=== PATIENT | female | born 1960 ===

== ENCOUNTER 2019-05-02 08:20 | Outpatient (CLI) | payer BC, SELFPAY ==
--- NOTE | 2019-05-02 08:30 | US_ITS ---
WS: [id number] ULTRASOUND ABDOMEN LIMITED CLINICAL INFORMATION: RUQ PAIN COMPARISON: None. FINDINGS: Liver Size: Normal. Craniocaudal length: 21.2 cm. Echogenicity: Dense with fatty infiltration Surface nodularity: None. Mass (size and location): None. Bile ducts Intrahepatic ducts: Normal. Common bile duct diameter: 5.2 mm. Gallbladder Normal. Gallstones: None. Gallbladder sludge: None. Gallbladder wall thickening: None. Pericholecystic fluid: None. Sonographic Mays sign: Absent. Pancreas Normal as visualized. Right kidney: Normal. Hydronephrosis: None. Size: 10.5 cm x 5.7 cm x 5.2 cm. Abdominal aorta and IVC Visualized portions are normal. Ascites: None. US/US gall bladder [id number] IMPRESSION: 1. Coarse hepatic echogenicity with fatty infiltration. 2. Gallbladder is normal. 3. No hydronephrosis in right kidney. 4. Normal common bile duct.
== END 2019-05-02 08:21 | disposition home or self-care (01) ==
LOC: RAD 08:26
PROVIDERS: PCP Family Medicine; Visit Provider Family Medicine
DX: K76.0 Fatty (change of) liver, not elsewhere classified (principal); R10.11 Right upper quadrant pain
CPT/HCPCS: 76705

== ENCOUNTER 2019-05-30 06:41 | Outpatient (CLI) | payer BC, SELFPAY ==
--- NOTE | 2019-05-30 06:50 | NM_ITS ---
WS: [id number] NUCLEAR MEDICINE HIDA SCAN CLINICAL INFORMATION: RUQ PAIN TECHNIQUE: Following intravenous administration of 8.2 mCi of technetium 99m mebrofenin, images of th e abdomen were obtained over the course of 60 minutes. Next, gallbladder ejection fraction was determ ined by obtaining preprandial and one-hour postprandial images of the gallbladder following oral mishel stion of Ensure. COMPARISON: Ultrasound May 02, 2019 FINDINGS: Normal hepatic uptake at 5 minutes. Normal hepatic excretion. Normal gallbladder activity by 15 minut es. Normal common bile duct. No evidence of acute cholecystitis or choledocholithiasis. Normal small bowel activity. Gallbladder ejection fraction 78% within normal limits. No evidence of chronic cholecystitis. NM/NM hepatobiliary w phar* [id number] IMPRESSION: 1. No evidence of acute or chronic cholecystitis. 2. Gallbladder ejection fraction 78% within normal limits.
== END 2019-05-30 06:42 | disposition home or self-care (01) ==
LOC: RAD 06:46
PROVIDERS: PCP Family Medicine; Visit Provider Family Medicine
DX: R10.11 Right upper quadrant pain (principal)
CPT/HCPCS: 78227; A9537

== ENCOUNTER 2019-06-01 19:51 | Emergency (ER) | payer BC, SELFPAY ==
[2019-06-01 20:08] VITALS: BP 177/84; PULSE 64; RESP 24; TEMP 36.4; O2SAT 96; BMI 31.1
--- NOTE | 2019-06-01 20:13 | ED_ITS ---
Entered by Jennifer Samuel, acting as scribe for Clover Rowley MD Jun 01, 2019 19:51 HPI - Abdominal Pain General: Chief Complaint: Abdominal Pain Stated Complaint: abd pain Time Seen by Provider: 06/01/19 20:13 Source: patient and family Mode of arrival: ambulatory Limitations: language barrier (Son translates) History of Present Illness: HPI narrative: 58 y/o female presents to the ED with complaint of RUQ abd pain. Pt states this pain is similar to her previous gallbladder attacks. Family states she had an ultrasound on her gallbladder on Thursday, but she had not heard back about the results. MD elicited complaint: abdominal pain Location: RUQ Severity: similar to previous episodes Radiation: epigastric Exacerbating factors: movement Relieving factors: nothing Associated Symptoms: Reports nausea; Denies chills, diarrhea, dysuria and vomiting Review of Systems Const: Denies: chills, body aches or change in appetite Eyes: Denies: blurry vision or eye discomfort ENMT: Denies: throat pain or dental pain Card: Denies: chest pain Resp: Denies: shortness of breath GI: Reports: abdominal pain (RUQ) and nausea; Denies: vomiting or diarrhea : Denies: painful urination Musc: Denies: neck pain or back pain Skin/Breast: Denies: rash Neuro: Denies: headache Psych: Denies: depression Jan/Lymph: Denies: easy bruising All/Imm: Denies: hives PFSH ED PFSH: Statuses (acute, chronic, etc) shown below reflect problem list status as previously entered and may not be historically accurate Social History Smoking and tobacco status: never smoked Physical Exam Const: COMMON NORMALS: oriented x3 and healthy appearing NUTRITIONAL APPEARANCE: obese HENMT: COMMON NORMALS: normocephalic and head/scalp atraumatic HEAD & SCALP: normocephalic and atraumatic Eye: COMMON NORMALS: PERRL and EOMs intact bilaterally PUPIL: Yes PERRL Neck/C-Spine: COMMON NORMALS: full ROM and supple Chest: COMMONS NORMALS: inspection of chest normal and palpation of chest normal Resp: COMMON NORMALS: normal respiratory effort, no retractions, no use of accessory muscles and clear to auscultation bilaterally AUSCULTATION: clear to auscultation bilaterally Cardio: COMMON NORMALS: regular rate, regular rhythm and no murmurs RATE: regular rate RHYTHM: regular rhythm GI: COMMON NORMALS: soft to palpation and no masses PALPATION: Yes soft and Yes tender Details: RUQ Extremity: COMMON NORMALS: normal to inspection and full ROM Neuro: COMMON NORMALS: oriented x3, moves all extremities and no focal motor deficits Psych: COMMON NORMALS: mental status grossly normal, thought process normal and cooperative THOUGHT PROCESS: normal thought process Skin: COMMON NORMALS: no rashes or lesions noted and no wounds GENERAL SKIN EXAM: no rashes or lesions noted Course Vital Signs: Vital signs: Vital Signs Temperature 97.6 F 06/01/19 20:08 Pulse Rate 69 06/01/19 22:38 Respiratory Rate 18 06/01/19 22:49 Blood Pressure 140/86 06/01/19 22:49 Pulse Oximetry 94 06/01/19 22:49 MDM - Abdominal Pain MDM Narrative: Medical decision making narrative: Patient presents here with abdominal pain since resolved. Patient's CT scan along with lab work here is all normal. Patient had a HIDA scan on Thursday that was normal as well. Unsure what is causing her pain. EKG is normal and she has no signs of cardiac cause. Patient is stable and is to follow-up with her primary care doctor in 3 to 5 days and return if worsening. Lab Data: Labs: Lab Results 06/01/19 06/01/19 06/01/19 Range/Units 20:14 20:14 21:40 WBC 8.4 (4.0-10.0) 10^3/ uL RBC 4.65 (4.1-5.3) 10^6/u L Hgb 12.6 (11.5-15.3) g/dL Hct 39.0 (37.0-47.0) % MCV 83.9 (81-99) fL MCH 27.1 L (28.0-34.0) pg MCHC 32.3 (30.0-36.0) g/dL RDW 12.7 (12.1-15.1) % Plt Count 402 H (130-400) 10^3/c mm MPV 10.8 H (7.4-10.4) fL Neut % (Auto) 47.1 % Lymph % (Auto) 44.7 % [place] % (Auto) 6.1 % Eos % (Auto) 1.6 % Baso % (Auto) 0.4 % Neut # (Auto) 3.9 (1.8-7.7) 10^3/u L Lymph # (Auto) 3.7 (0.8-4.8) 10^3/u L [place] # (Auto) 0.5 (0.2-0.9) 10^3/u L Eos # (Auto) 0.1 (0.0-0.8) 10^3/u L Baso # (Auto) 0.0 (0.0-0.1) 10^3/u L Nucleated RBC % (a uto) 0 % Nucleated RBCs # 0.0 /100WBC Sodium 138 (136-145) mmol/L Potassium 3.5 (3.5-5.1) mmol/L Chloride 104 (98-107) mmol/L Carbon Dioxide 24 (22-29) mmol/L Anion Gap 13.5 (5-19) BUN 20 (8-23) mg/dL Creatinine 0.8 (0.5-0.9) mg/dL GFR Calculation 73.2 L (90-130) mL/min Glucose 135 H (65-115) mg/dL Calcium 9.4 (8.5-10.5) mg/dL Total Bilirubin 0.3 (0.15-1.2) mg/dL AST 35 H (0-32) U/L ALT 25 (0-33) U/L Alkaline Phosphata se 65 (35-105) IU/L Total Protein 7.2 (6.6-8.7) g/dL Albumin 4.4 (3.5-5.2) g/dL Globulin 2.8 (1.3-4.6) g/dL Lipase 60 (13-60) U/L Urine Color Straw (Yellow) Urine Appearance Clear (CLEAR) Urine pH 6.5 (5-7) Ur Specific Gravit y 1.005 (1.005-1.030) Urine Protein Neg (Negative) Urine Glucose (UA) Norm (Normal) Urine Ketones Negative (Negative) Urine Occult Blood Neg (Negative) Urine Nitrate Negative (Negative) Urine Bilirubin Neg (NEGATIVE) Urine Urobilinogen Norm (Negative) mg/dL Ur Leukocyte Nel ase Negative (Negative) Imaging Data ^: CXR: Attestation: I personally reviewed and interpreted this imaging study as follows: My impression: no acute abnormality EKG Data ^: EKG 1: EKG interpretation date: 06/01/19 EKG interpretation time: 21:11 Interpretation: nsr hr [address] or t wave abnormalities qrs 106 qtc 427 Discharge Plan Discharge Patient Disposition: Home, Self-Care Clinical Impression: Abdominal pain Qualifiers: Abdominal location: right upper quadrant Qualified Code(s): R10.11 - Right upper quadrant pain Condition: Stable Prescriptions: [place] 5-325 mg tablet 1 tab PO Q6H PRN (Reason: pain) Qty: 14 RF: 0 Zofran 4 mg tablet 4 mg PO QID PRN (Reason: nausea and vomiting) Qty: 14 RF: 0 No Action metformin 500 mg tablet 500 mg PO DAILY RF: 0 lisinopril 5 mg tablet 5 mg PO DAILY RF: 0 Discharge Orders: Discharge Order (Routine); Ordered 06/01/19 Ordered By: Clover Rowley Referrals: Ricardo Finch MD [Primary Care Provider] - 4-7 days Discharge Diet: Advance as tolerated Discharge Activity: Resume usual activity Patient Instructions: Abdominal Pain (ED) Discharge Date/Time: 06/01/19 23:32 Coding Level of Care Code ED Environmental Services Technician for Chg Fwd The documentation recorded by the Jimmie loera Ashley, accurately reflects the service I personally performed and the decisions made by Halley godinez Korby, MD Jun 01, 2019 19:51
[2019-06-01 20:21] LABS: Basophils % 0.4 %; Eosinophils # 0.1 10^3/uL (0.0-0.8); Eosinophils % 1.6 %; Hemoglobin 12.6 g/dL (11.5-15.3); Lymphocytes # 3.7 10^3/uL (0.8-4.8); Lymphocytes % 44.7 %; Mean Corpuscular HGB Conc 32.3 g/dL (30.0-36.0); Mean Corpuscular Hemoglobin 27.1 pg (28.0-34.0); Mean Corpuscular Volume 83.9 fL (81-99); Mean Platelet Volume 10.8 fL (7.4-10.4); Monocytes # 0.5 10^3/uL (0.2-0.9); Monocytes % 6.1 %; Neutrophils # 3.9 10^3/uL (1.8-7.7); Neutrophils % 47.1 %; Nucleated Red Blood Cells % 0 %; Platelet Count 402 10^3/cmm (130-400); Red Blood Count 4.65 10^6/uL (4.1-5.3); Red Cell Distribution Width 12.7 % (12.1-15.1); White Blood Count 8.4 10^3/uL (4.0-10.0)
--- NOTE | 2019-06-01 20:22 | ECG_ITS ---
Measurements Intervals [place] Rate: 67 P: 32 [place]: 193 QRS: -13 QRSD: 106 T: -9 QT: 411 QTc: 437 SINUS RHYTHM LOW QRS VOLTAGE IN PRECORDIAL LEADS [QRS DEFLECTION < 1.0 mV IN CHEST LEADS] MINIMAL VOLTAGE CRITERIA FOR LVH, CONSIDER NORMAL VARIANT [MEETS CRITERIA IN ONE OF: R(aVL), S(V1), R(V5), R(V5/V6)+S(V1)] Compared to ECG 04/18/2019 16:14:14 Low QRS voltage now present Sinus bradycardia no longer present Myocardial infarct finding no longer present Electronically Signed On 06-02-2019 16:29:22 GEOTHERMAL INSTALLER by Andrzej Daugherty M.D. [id number]
--- NOTE | 2019-06-01 20:23 | XR_ITS ---
WS: [id number] PORTABLE CHEST HISTORY: Right-sided chest pain for one day. COMPARISON: 04/18/2019 Lungs are clear and well expanded. No pleural effusion or pneumothorax. Cardiac size: Normal. Mediastinum/Aorta: Mild ectasia aorta. No osseous abnormality seen. XR/XR chest 1V portable [id number] IMPRESSION: Mildly ectatic aorta. No acute cardiopulmonary findings.
[2019-06-01] MEDS: ondansetron 2 mg/ML SDV 2 mL 4 MG IVP ×2 (20:35→22:45)
[2019-06-01] MEDS: morphine 4 mg/mL SDV 1 mL IVP (20:35)
[2019-06-01 20:37] LABS: Alanine Aminotransferase 25 U/L (0-33); Albumin Level 4.4 g/dL (3.5-5.2); Alkaline Phosphatase 65 IU/L (35-105); Anion Gap 13.5 (5-19); Aspartate Amino Transferase 35 U/L (0-32); Blood Urea Nitrogen 20 mg/dL (8-23); Calcium 9.4 mg/dL (8.5-10.5); Carbon Dioxide 24 mmol/L (22-29); Chloride 104 mmol/L (98-107); Globulin 2.8 g/dL (1.3-4.6); Glomerular Filtration Rate 73.2 mL/min (90-130); Glucose 135 mg/dL (65-115); Lipase 60 U/L (13-60); Potassium 3.5 mmol/L (3.5-5.1); Sodium 138 mmol/L (136-145); Total Bilirubin 0.3 mg/dL (0.15-1.2); Total Protein 7.2 g/dL (6.6-8.7)
[2019-06-01 20:38] VITALS: BP 155/91; PULSE 57; RESP 20; O2SAT 95
--- NOTE | 2019-06-01 20:38 | PC.NURSE ---
Introduced self to patient and initiated vital signs. Pt is A&O x 4 and agreeable. Pt states that the reason for the ER visit today is due to severe abdominal pain which presented approximately 1 hour ago. Pt states that pain is on lower right quadrant of abdomen and radiates around to back. Reassured patient of needs and will continue to monitor.
--- NOTE | 2019-06-01 21:00 | CTR_ITS ---
PROCEDURE INFORMATION: Exam: CT Abdomen And Pelvis With Contrast Exam date and time: 06/01/2019 9:40 PM Age: 58 years old Clinical indication: Abdominal pain; Acute; Prior surgery; Surgery date: 6+ months; Surgery type: Hyst; Additional info: Abd pain TECHNIQUE: Imaging protocol: Computed tomography of the abdomen and pelvis with intravenous contrast. Total DLP: 1124.82 mGy-cm Radiation optimization: All CT scans at this facility use at least one of these dose optimization techniques: automated exposure control; mA and/or kV adjustment per patient size (includes targeted exams where dose is matched to clinical indication); or iterative reconstruction. Contrast material: OMNI; Contrast volume: 95 ml; Contrast route: IV; COMPARISON: CT abdomen pelvis w con* [id number] 04/23/2017 1:32 PM FINDINGS: Liver: There is 9 mm cyst in the right lobe of the liver. There is mild hepatomegaly. Gallbladder and bile ducts: Normal. No calcified stones. No ductal dilation. Pancreas: The pancreas is normal. Spleen: The spleen is normal. Adrenals: The adrenal glands are normal. Kidneys and ureters: There is a simple 6 mm cyst in the left kidney. The this is not changed from previous. The right kidney is normal. Stomach and bowel: There is no evidence of colitis/diverticulitis. Appendix: A normal appendix is identified. Intraperitoneal space: Unremarkable. No free air. No significant fluid collection. Vasculature: Unremarkable. No abdominal aortic aneurysm. Lymph nodes: Unremarkable. No enlarged lymph nodes. Bladder: Unremarkable as visualized. Reproductive: There has been a hysterectomy. Bones/joints: Unremarkable. No acute fracture. Soft tissues: There is a tiny periumbilical hernia containing fat not significantly changed Other findings: There is no evidence of focal fluid collections to suggest abscess formation. CT/CT abdomen pelvis w con* [id number] IMPRESSION: No acute finding. COMMENT: Consistent with the [employer]'s Incidental Findings Committee white paper (J Am Preet Radiol 2018): Any incidental cystic renal lesion classified in this report as too small to characterize or simple appearing is likely a benign cyst. No follow-up imaging is recommended for these lesions per consensus recommendations based on imaging criteria. Radiation Dose CTDIVOL = (mGy): DLP = 1124.82 (mGy-cm)
[2019-06-01] MEDS: HYDROmorphone 1 mg/mL INJ 1 mL IVP (21:05)
--- NOTE | 2019-06-01 21:09 | PC.NURSE ---
EKG done at 2104 and shown to ER doctor
[2019-06-01 21:45] LABS: Add Urine Microscopic? NO
[2019-06-01 21:55] LABS: Urine Appearance Clear (CLEAR); Urine Color Straw (Yellow)
[2019-06-01 21:56] LABS: Bilirubin Urine Neg (NEGATIVE); Blood Urine Neg (Negative); Glucose Urine UA Norm (Normal); Ketones Urine Negative (Negative); Leukocyte Esterase Urine Negative (Negative); Nitrate Urine Negative (Negative); Protein Urine Neg (Negative); Specific Gravity, Urine 1.005 (1.005-1.030); Urobilinogen Urine Norm (Negative); pH Urine 6.5 (5-7)
[2019-06-01 22:08] VITALS: BP 116/71; PULSE 68; RESP 16; O2SAT 92
[2019-06-01] MEDS: iohexol 300 mg/mL 100 mL Btl 95 ML IV (22:26)
[2019-06-01 22:38] VITALS: BP 140/86; PULSE 69; RESP 16; O2SAT 95
[2019-06-01 22:49] VITALS: BP 140/86; RESP 18; O2SAT 94
== END 2019-06-01 23:32 | disposition home or self-care (01) ==
PROVIDERS: Emergency Provider Emergency Medicine; PCP Family Medicine
DX: R10.11 Right upper quadrant pain (principal); Z79.84 Long term (current) use of oral hypoglycemic drugs
CPT/HCPCS: 71045; 74177; 80053; 81003; 83690; 85025; 93005; 96374; 96375; 96376; 99283; J1170; J2270; J2405; Q9967

== ENCOUNTER 2019-07-07 07:15 | Day surgery (SDC) | payer BC, SELFPAY ==
[2019-07-06 17:40] VITALS: BMI 29.2
[2019-07-07] VITALS (11 sets, daily range): BP systolic 144–195; BP diastolic 74–97; PULSE 46–77; RESP 15–23; TEMP 36.2–37.2; O2SAT 90–98
--- NOTE | 2019-07-07 07:54 | W.PM.OPSUD ---
Surgery/Procedure H&P Update DATE OF PROCEDURE: July 07, 2019 DATE H&P PERFORMED: 06/28/19 H&P UPDATE INFORMATION: I have reviewed H&P completed within last 30 days and No changes to prior documentation PLANNED PROCEDURE: Operation Date: 07/07/19 08:45 Proposed Procedures p Lap poss open Cholecystectomy(Not Applicable) - Raúl Eli MD
--- NOTE | 2019-07-07 07:58 | ANES.PREANE2 ---
Pre-Anesthetic Assessment Pre-Anesthetic Assessment: Height/Weight: Height 1.57 m Weight 72.575 kg Temp Pulse Resp BP Pulse Ox 98.9 F 77 18 178/85 98 07/07/19 07:41 07/07/19 07:41 07/07/19 07:41 07/07/19 07:41 07/07/19 07:41 Proposed Procedure: Operation Date: 07/07/19 08:45 Proposed Procedures p Lap poss open Cholecystectomy(Not Applicable) - Raúl Eli MD Was Beta Skylar taken within 24 hours: N/A Last intake: Intake Last Liquid Date 07/06/19 Last Liquid Time 17:00 Last Solid Date 07/06/19 Last Solid Time 17:00 Social: Social History: No alcohol and No tobacco Exam: Pre-Anes Outpt Exam: alert, oriented x 3, clear to auscultation bilaterally and regular rate & rhythm Airway: Submandibular: WNL Cervical ROM: WNL MP: 2 Additional comments: upper denture Pulmonary: Pulmonary: None reported CV/HEM: CV/HEM: None reported : : None reported Hepatic: Hepatic: None reported GI: GI: GERD Comments: acute luana Metabolic: Metabolic: DM Musc/skel: Musc/skel: None reported Neuropsych: Neuropsych: None reported Anesthetic Plan: ASA status: 2 Anesthesia: General Risk of > 500 ml blood loss (7ml/kg in children): No PFSH Anesthesia PFSH: Social History Smoking and tobacco status: never smoked Data Anesthesia Cardiac Studies: No Data to Display
[2019-07-07 07:59] LABS: Glucose Point of Care 104 mg/dL (70-110)
[2019-07-07] MEDS: sodium chloride 0.9% 1,000 ML 30 ML IV (07:59)
--- NOTE | 2019-07-07 08:00 | ANES.PAUD2 ---
Pre-Anesthetic Update Pre-Anesthetic Assessment: Date of Surgery/Procedure: 07/07/19 Proposed Procedure: Operation Date: 07/07/19 08:45 Proposed Procedures p Lap poss open Cholecystectomy(Not Applicable) - Raúl Eli MD Any changes to Pre-Anesthetic Assessment?: No Last Intake: Intake Last Liquid Date 07/06/19 Last Liquid Time 17:00 Last Solid Date 07/06/19 Last Solid Time 17:00 Labs Last 48hrs: Laboratory Results - last 48 hr 07/07/19 07:56 POC Glucose 104 Vitals: Temperature 98.9 F 07/07/19 07:41 Temperature Source Temporal Artery S can 07/07/19 07:41 Pulse Rate 77 07/07/19 07:41 Pulse Rhythm 07/07/19 07:42 Pulse Strength 3+ Normal 07/07/19 07:42 Respiratory Rate 18 07/07/19 07:41 Blood Pressure 178/85 07/07/19 07:41 Blood Pressure Danielle n 116 07/07/19 07:41 Pulse Oximetry 98 07/07/19 07:41 Oxygen Delivery Me thod 07/07/19 07:42 Exam: Pre-Anes Outpt Exam: alert, oriented x 3, clear to auscultation bilaterally and regular rate & rhythm Cardiac Studies: No Data to Display
[2019-07-07 08:36] LABS: Alanine Aminotransferase 23 U/L (0-33); Albumin Level 4.2 g/dL (3.5-5.2); Alkaline Phosphatase 70 IU/L (35-105); Aspartate Amino Transferase 16 U/L (0-32); Globulin 3.7 g/dL (1.3-4.6); Total Bilirubin 0.8 mg/dL (0.15-1.2); Total Protein 7.9 g/dL (6.6-8.7)
--- NOTE | 2019-07-07 09:15 | P.OP_ITS ---
Operative Report Date of procedure: July 07, 2019 Pre-op Diagnosis: Chronic cholecystitis. Post-op Diagnosis: Same with cholelithiasis (did not show up on preoperative imaging). Procedure Done: Laparoscopic cholecystectomy. Specimens removed/disposition: Gallbladder. Surgeon: Raúl Eli Anesthesia: General Estimated blood loss (mL): 5 Condition: stable Disposition: PACU Procedure: The patient was brought to the Operating Room and was placed in a supine position on the Operating Room table. General endotracheal anesthesia was induced. The abdomen was prepped and draped in a sterile fashion. A small vertical incision was carried out in the inferior aspect of the umbilicus. Blunt dissection was carried out down to the fascia where a small hernia defect was found. The fat coming through the hernia was partially excised, revealing the defect at the fascial level. The hernia defect was simply elongated inferiorly and then a stay suture of 0 Vicryl was placed on either side of the midline. The Vivienne port was placed directly into the peritoneal cavity through the enlarged hernia defect and was held in place with the inflatable balloon. The peritoneal cavity was insufflated with carbon dioxide. The laparoscope was used to inspect the abdominal cavity. The patient had some fatty adhesions to the umbilicus from the presence of the hernia which were eventually taken down. No other gross abnormalities were noted. A 5 millimeter port was placed in the epigastrium under direct vision. Two 5-millimeter ports were placed on the right side of the abdomen under direct vision. The ga llbladder was grasped and was elevated. Blunt dissection and hydrodissection were carried out in the infundibular region of the gallbladder and the cystic duct and cystic artery were identified. The gallbladder was partially removed from the liver bed using cautery and the spatula to confirm the anatomy before the structures were clipped and divided. The gallbladder was then removed from the liver bed using cautery and the spatula. Some small holes were inadvertently made in the gallbladder during the dissection, and a small but obvious mulberry shaped stone fell from the gallbladder and was retrieved with suction. After the gallbladder had been removed from the liver bed, the laparoscope was moved to the epigastric port and the gallbladder was removed from the peritoneal cavity through the umbilical port site after being placed in a laparoscopic bag. The stay sutures of Vicryl were tied to each other at the umbilicus, closing the defect so that it was airtight. The perihepatic spaces were irrigated with saline and the liver bed was reinspected. No ongoing problems were seen. The remaining ports were removed from the abdominal wall and the pneumoperitoneum was evacuated. All skin incisions were closed using inverted interrupted sutures of 4-0 Vicryl. Benzoin and Steri-Strips were placed over the incisions and Band-Aids followed. The patient was taken to the Recovery Area in stable condition postoperatively.
--- NOTE | 2019-07-07 09:28 | SUR.PHASEI ---
0979 PATIENT TO PACU AT THIS TIME. RR EVEN AND UNLABORED. ORAL AIRWAY IN PLACE. 4 INCISIONS TO ABDOMEN, CDI.
--- NOTE | 2019-07-07 09:53 | SUR.PHASEI ---
0935 ORAL AIRWAY REMOVED AT THIS TIME. SPO2 98% ON SIMPLE MASK AT 10L.
--- NOTE | 2019-07-07 10:04 | SUR.PHASEI ---
1003 PATIENT TO OPS AT THIS TIME. PAIN 5/10. RR EVEN AND UNLABORED, DROWSY. INCISIONS, REMY TO ABDOMEN.
[2019-07-07] MEDS: HYDROcodone-acetaminophen 5-325 mg Tablet 1 TAB PO (10:26)
== END 2019-07-07 10:59 | disposition home or self-care (01) ==
PROVIDERS: PCP Family Medicine; Visit Provider Surgery
PROC: 0FT44ZZ Resection of Gallbladder, Percutaneous Endoscopic Approach (ICD-10-PCS; CPT 47562; principal; 2019-07-07 08:45)
DX: K80.10 Calculus of gallbladder with chronic cholecystitis without obstruction (principal); E11.9 Type 2 diabetes mellitus without complications; I10 Essential (primary) hypertension; Z79.84 Long term (current) use of oral hypoglycemic drugs
CPT/HCPCS: 47562; 12345; 36416; 80076; 82962; 88304; J0690; J1200; J2001; J2704; J2710; J3010; J3490; J7030

== ENCOUNTER → 2020-12-07 08:42 | Outpatient (BNVA) | payer SELFPAY | PROVIDERS: PCP Family Medicine Adult Medicine; Visit Provider Family Medicine Adult Medicine | DX: Z00.00 Encounter for general adult medical examination without abnormal findings (principal); E11.22 Type 2 diabetes mellitus with diabetic chronic kidney disease; E78.5 Hyperlipidemia, unspecified; E66.9 Obesity, unspecified; I12.9 Hypertensive chronic kidney disease with stage 1 through stage 4 chronic kidney disease, or unspecified chronic kidney disease; I20.8 Other forms of angina pectoris; Z87.19 Personal history of other diseases of the digestive system | CPT/HCPCS: 80053; 80061; 83036; 84443; 85025 ==

== ENCOUNTER 2021-01-19 09:31 | Outpatient (CLI) | payer OTHER, SELFPAY ==
--- NOTE | 2021-01-19 09:40 | XRR_ITS ---
PROCEDURE INFORMATION: Exam: XR Lumbosacral Spine Exam date and time: 01/19/2021 9:40 AM Age: 60 years old Clinical indication: Low back pain; Additional info: [place] TECHNIQUE: Imaging protocol: XR of the lumbosacral spine. Views: 2 or 3 views. COMPARISON: CT abdomen pelvis w con* [id number] 06/01/2019 10:35 PM FINDINGS: Bones/joints: No fracture or other acute bone or joint abnormalities are seen in the lumbar spine. There is mild degenerative sclerosis of the lower lumbar facet joints. The disc spaces are not significantly narrowed. No destructive or erosive processes are seen. Soft tissues: Unremarkable. XR/XR lumbar spine 2-3V* [id number] IMPRESSION: Mild degenerative disease in the lower lumbar facet joints. No acute abnormality.
== END 2021-01-19 09:32 | disposition home or self-care (01) ==
PROVIDERS: PCP Family Medicine Adult Medicine; Visit Provider Dermatology
DX: Z02.71 Encounter for disability determination (principal); M54.5 Low back pain; M51.36 Other intervertebral disc degeneration, lumbar region
CPT/HCPCS: 72100

== ENCOUNTER → 2021-06-05 09:20 | Outpatient (BNVA) | payer MEDICAID, SELFPAY | PROVIDERS: PCP Family Medicine Adult Medicine; Visit Provider Family Medicine Adult Medicine | DX: E11.22 Type 2 diabetes mellitus with diabetic chronic kidney disease (principal); E78.5 Hyperlipidemia, unspecified; I12.9 Hypertensive chronic kidney disease with stage 1 through stage 4 chronic kidney disease, or unspecified chronic kidney disease; M25.552 Pain in left hip; G89.29 Other chronic pain; E11.59 Type 2 diabetes mellitus with other circulatory complications; Z68.33 Body mass index [BMI] 33.0-33.9, adult | CPT/HCPCS: 80053; 80061; 83036 ==

== ENCOUNTER → 2021-12-04 08:29 | Outpatient (BNVA) | payer MEDICAID, SELFPAY | PROVIDERS: PCP Family Medicine Adult Medicine; Visit Provider Family Medicine Adult Medicine | DX: E78.5 Hyperlipidemia, unspecified; E11.22 Type 2 diabetes mellitus with diabetic chronic kidney disease; M25.552 Pain in left hip; G89.29 Other chronic pain; E11.59 Type 2 diabetes mellitus with other circulatory complications; I15.2 Hypertension secondary to endocrine disorders; E66.9 Obesity, unspecified; Z00.00 Encounter for general adult medical examination without abnormal findings | CPT/HCPCS: 80053; 80061; 83036; 84443; 85025 ==

== ENCOUNTER 2022-03-30 03:42 | Emergency (ER) | payer BC, MEDICAID, SELFPAY ==
--- NOTE | 2022-03-30 03:46 | ECG_ITS ---
[facility] Test Date: 2022-03-30 Pat Name: Mejia Adame Department: Room: Gender: Female Explosive Operator Supervisor: : [id number] Requested By: Chucho Rosas Order Number: [id number] [place] MD: Baljit Yip M.D. Measurements Intervals [place] Rate: 77 P: 30 [place]: 189 QRS: -20 QRSD: 93 T: 9 QT: 382 QTc: 434 Interpretive Statements SINUS RHYTHM LOW QRS VOLTAGE IN PRECORDIAL LEADS [QRS DEFLECTION < 1.0 mV IN CHEST LEADS] MINIMAL VOLTAGE CRITERIA FOR LVH, CONSIDER NORMAL VARIANT [MEETS CRITERIA IN ONE OF: R(aVL), S(V1), R(V5), R(V5/V6)+S(V1)] Compared to ECG 06/01/2019 21:11:07 No significant changes Electronically Signed On 03-30-2022 19:45:14 ASSEMBLER DC FIELD YOKE by Baljit Yip M.D. [id number]
[2022-03-30 03:47] VITALS: BP 142/81; PULSE 73; RESP 20; TEMP 36.6; O2SAT 96; BMI 32.1
--- NOTE | 2022-03-30 03:59 | XRR_ITS ---
PROCEDURE INFORMATION: Exam: XR Chest Exam date and time: 03/30/2022 4:25 AM Age: 61 years old Clinical indication: Chest wall pain; Additional info: Cp TECHNIQUE: Imaging protocol: Radiologic exam of the chest. Views: 1 view. COMPARISON: CR XR chest 1V portable [id number] 06/01/2019 8:27 PM FINDINGS: Lungs: No focal airspace disease. Pleural spaces: Unremarkable. No pleural effusion. No pneumothorax. Heart/Mediastinum: Cardiomediastinal silhouette is within normal limits. Bones/joints: Unremarkable. XR/XR chest 1V portable [id number] IMPRESSION: No acute cardiopulmonary abnormality.
--- NOTE | 2022-03-30 03:59 | CTR_ITS ---
PROCEDURE INFORMATION: Exam: CT Head Without Contrast Exam date and time: 03/30/2022 4:12 AM Age: 61 years old Clinical indication: Dizziness and malaise or fatigue TECHNIQUE: Imaging protocol: Computed tomography of the head without contrast. Radiation optimization: All CT scans at this facility use at least one of these dose optimization techniques: automated exposure control; mA and/or kV adjustment per patient size (includes targeted exams where dose is matched to clinical indication); or iterative reconstruction. COMPARISON: No relevant prior studies available. RADIATION DOSE METRICS: Total DLP (mGy-cm): 1040.38 FINDINGS: Brain: Normal. No hemorrhage. Unremarkable white matter. No mass effect. Cerebral ventricles: No ventriculomegaly. Paranasal sinuses: Visualized sinuses are unremarkable. No fluid levels. Mastoid air cells: Visualized mastoid air cells are well aerated. Bones/joints: Unremarkable. No acute fracture. Soft tissues: Unremarkable. CT/CT head wo con* [id number] IMPRESSION: No acute intracranial abnormality.
[2022-03-30 04:13] LABS: Basophils # 0.1 10^3/uL (0.0-0.1); Basophils % 0.4 %; Eosinophils # 0.1 10^3/uL (0.0-0.8); Eosinophils % 1.1 %; Hematocrit 45.7 % (37.0-47.0); Lymphocytes # 4.1 10^3/uL (0.8-4.8); Lymphocytes % 35.1 %; Mean Corpuscular HGB Conc 32.8 g/dL (30.0-36.0); Mean Corpuscular Hemoglobin 28.3 pg (28.0-34.0); Mean Corpuscular Volume 86.2 fl (81-99); Mean Platelet Volume 10.7 fL (7.4-10.4); Monocytes # 0.7 10^3/uL (0.2-0.9); Monocytes % 5.7 %; Neutrophils # 6.69 10^3/uL (1.8-7.7); Neutrophils % 56.9 %; Nucleated Red Blood Cells % 0 %; Platelet Count 467 10^3/cmm (130-400); Red Cell Distribution Width 12.5 % (12.1-15.1); White Blood Count 11.8 10^3/uL (4.0-10.0)
[2022-03-30] MEDS: sodium chloride 0.9% 1,000 ML 999 ML IV (04:25)
[2022-03-30] MEDS: midazolam 1 mg/mL INJ 2 mL 2 MG IVP (04:25)
[2022-03-30 04:26] LABS: Troponin(5th) Baseline 7 ng/L (0-10)
[2022-03-30 04:28] LABS: Alanine Aminotransferase 27 U/L (0-33); Albumin Level 4.4 g/dL (3.5-5.2); Alkaline Phosphatase 83 U/L (35-105); Anion Gap 16.1 (5-19); Aspartate Amino Transferase 22 U/L (0-32); Blood Urea Nitrogen 23 mg/dL (8-23); Calcium 10.1 mg/dL (8.5-10.5); Carbon Dioxide 24 mmol/L (22-29); Chloride 97 mmol/L (98-107); Globulin 3.3 g/dL (1.3-4.6); Glucose 140 mg/dL (65-115); Osmolality Calculated 282 mOsm/kg (285-295); Potassium 4.1 mmol/L (3.5-5.1); Sodium 133 mmol/L (136-145); Total Bilirubin 0.3 mg/dL (0.15-1.2); Total Protein 7.7 g/dL (6.6-8.7)
--- NOTE | 2022-03-30 05:02 | W.ED.DIZZY ---
HPI - Dizziness General: Chief Complaint: Dizziness Stated Complaint: CHEST PAIN Time Seen by Provider: 03/30/22 03:48 Source: patient and family History of Present Illness: HPI Narrative: 61-year-old female with no known prior history of coronary disease. She does not speak good Portuguese. She presents after waking up around 1:30 in the morning with significant dizziness. She also had some chest discomfort that is now resolved no shortness of breath. The dizziness seems to be room spinning vertigo type dizziness that is now improved, but certainly not resolved. She has a history of diabetes and hypertension. MD elicited complaint: dizziness, lightheadedness and near syncope Pertinent past history: other Onset (ago): hour(s) Timing: sudden onset Severity: moderate Description: sense of movement Context: change in body position Exacerbating factors: movement/ambulation Relieving factors: remaining still Associated symptoms: Reports chest pain, fevers/chills, malaise, nasal congestion, palpitations and short of breath; Denies chills, cough, headache(s) or nausea Associated neuro symptoms: Deny confusion, difficulty speaking, dysphagia, diplopia, extremity weakness, facial numbness, facial weakness or visual changes Review of Systems Const: Reports: fever(s) and malaise; Denies: chills Eyes: Reports: decreased night vision; Denies: change in vision ENMT: Reports: nasal congestion; Denies: throat pain Card: Reports: chest pain and palpitations Resp: Reports: dyspnea and productive cough; Denies: non-productive cough GI: Denies: abdominal pain, nausea or dysphagia : Reports: flank pain (Now resolved) Neuro: Denies: headache(s) or confusion PFS ED PFSH: Medical History Angina at rest Chronic left hip pain Diabetes mellitus Dyslipidemia History of gallbladder disease Hypertension associated with diabetes Obesity (BMI 30.0-34.9) Well adult health check Social History Smoking and tobacco status: never smoked Alcohol intake: never Household members: spouse Physical Exam Const: COMMON NORMALS: no acute distress GENERAL APPEARANCE: cooperative, anxious, ill appearing (Mildly) and frail appearing (Mildly) HENMT: COMMON NORMALS: normocephalic, atraumatic and Normal external nose present HEAD & SCALP: normocephalic and atraumatic FACE & SINUS: normal facial exam and face symmetric NOSE: Normal external nose present Eye: COMMON NORMALS: Equal, round and reactive pupils present and EOMs intact bilaterally PUPIL: Yes Equal, round and reactive pupils present Neck/C-Spine: GENERAL: Yes trachea midline Chest: CHEST: Yes Symmetrical chest wall rise Resp: COMMON NORMALS: normal respiratory effort, No retractions, No use of accessory muscles and clear to auscultation bilaterally AUSCULTATION: clear to auscultation bilaterally Cardio: COMMON NORMALS: regular rate and regular rhythm RATE: regular rate RHYTHM: regular rhythm GI: COMMON NORMALS: Normal to inspection, nondistended, normoactive bowel sounds present Extremity: COMMON NORMALS: no pedal edema Neuro: MAGUE COMA SCALE: document GCS findings [place] coma scale eye opening: Spontaneous [place] coma scale verbal response: Orientated [place] coma scale motor response: Obey commands [place] coma scale total score: 15 SENSORY EXAM: Yes extremities (intact) Psych: COMMON NORMALS: speech normal SPEECH: Yes normal speech Skin: COMMON NORMALS: no rashes or lesions noted GENERAL SKIN EXAM: no rashes or lesions noted Course Vital Signs: Vital signs: Vital Signs Temperature 97.9 F 03/30/22 03:47 Pulse Rate 75 03/30/22 07:07 Respiratory Rate 18 03/30/22 07:07 Blood Pressure 130/76 03/30/22 07:07 Pulse Oximetry 96 03/30/22 07:07 Oxygen Delivery Me thod 03/30/22 03:47 MDM - Dizziness Medical Decision Making 61-year-old female with chest pain and dizziness. Dizziness is improved significantly. Chest pain is resolved. Her EKG shows a sinus rhythm with normal axis and intervals. No ST changes. Rate is 75. Her first troponin is 7. Chest x-ray is normal. Head CT is normal. The patient has been up and walk to the bathroom. She has a contaminated urine without significant evidence of infection. No history of cough. She will be discharged pending a normal second troponin. Lab Data 03/30/22 03:49 03/30/22 03:49 Radiology Impressions Chest X-Ray 03/30/22 03:59 IMPRESSION: No acute cardiopulmonary abnormality. Head CT 03/30/22 03:59 IMPRESSION: No acute intracranial abnormality. Laboratory Results WBC 11.8 10^3/uL (4.0-10.0) H 03/30/22 03:49 RBC 5.30 10^6/uL (4.1-5.3) 03/30/22 03:49 Hgb 15.0 g/dL (11.5-15.3) 03/30/22 03:49 Hct 45.7 % (37.0-47.0) 03/30/22 03:49 MCV 86.2 fl (81-99) 03/30/22 03:49 MCH 28.3 pg (28.0-34.0) 03/30/22 03:49 MCHC 32.8 g/dL (30.0-36.0) 03/30/22 03:49 RDW 12.5 % (12.1-15.1) 03/30/22 03:49 Plt Count 467 10^3/cmm (130-400) H 03/30/22 03:49 MPV 10.7 fL (7.4-10.4) H 03/30/22 03:49 Neut % (Auto) 56.9 % 03/30/22 03:49 Lymph % (Auto) 35.1 % 03/30/22 03:49 [place] % (Auto) 5.7 % 03/30/22 03:49 Eos % (Auto) 1.1 % 03/30/22 03:49 Baso % (Auto) 0.4 % 03/30/22 03:49 Neut # (Auto) 6.69 10^3/uL (1.8-7.7) 03/30/22 03:49 Lymph # (Auto) 4.1 10^3/uL (0.8-4.8) 03/30/22 03:49 [place] # (Auto) 0.7 10^3/uL (0.2-0.9) 03/30/22 03:49 Eos # (Auto) 0.1 10^3/uL (0.0-0.8) 03/30/22 03:49 Baso # (Auto) 0.1 10^3/uL (0.0-0.1) 03/30/22 03:49 Nucleated RBC % (auto) 0 % 03/30/22 03:49 Nucleated RBCs # 0.0 /100WBC 03/30/22 03:49 Sodium 133 mmol/L (136-145) L 03/30/22 03:49 Potassium 4.1 mmol/L (3.5-5.1) 03/30/22 03:49 Chloride 97 mmol/L (98-107) L 03/30/22 03:49 Carbon Dioxide 24 mmol/L (22-29) 03/30/22 03:49 Anion Gap 16.1 (5-19) 03/30/22 03:49 BUN 23 mg/dL (8-23) 03/30/22 03:49 Creatinine 0.6 mg/dL (0.5-0.9) 03/30/22 03:49 GFR Calculation 101.0 mL/min (90-130) 03/30/22 03:49 Glucose 140 mg/dL (65-115) H 03/30/22 03:49 Calculated Osmolality 282 mOsm/kg (285-295) L 03/30/22 03:49 Calcium 10.1 mg/dL (8.5-10.5) 03/30/22 03:49 Magnesium 2.0 mg/dL (1.7-2.3) 03/30/22 03:49 Total Bilirubin 0.3 mg/dL (0.15-1.2) 03/30/22 03:49 AST 22 U/L (0-32) 03/30/22 03:49 ALT 27 U/L (0-33) 03/30/22 03:49 Alkaline Phosphatase 83 U/L (35-105) 03/30/22 03:49 Troponin T Baseline 7 ng/L (0-10) 03/30/22 03:49 Troponin T 120 Minute 6.25 ng/L (0-10) 03/30/22 06:20 Delta Troponin T -0.75 ABS# (0-10) L 03/30/22 06:20 Total Protein 7.7 g/dL (6.6-8.7) 03/30/22 03:49 Albumin 4.4 g/dL (3.5-5.2) 03/30/22 03:49 Globulin 3.3 g/dL (1.3-4.6) 03/30/22 03:49 Urine Color Yellow (Yellow) 03/30/22 04:45 Urine Appearance Hazy (CLEAR) A 03/30/22 04:45 Urine pH 5 (5-7) 03/30/22 04:45 Ur Specific [place] 1.025 (1.005-1.030) 03/30/22 04:45 Urine Protein Trace (Negative) 03/30/22 04:45 Urine Glucose (UA) Norm (Normal) 03/30/22 04:45 Urine Ketones 1+ (Negative) H 03/30/22 04:45 Urine Blood 2+ (Negative) H 03/30/22 04:45 Urine Nitrate Negative (Negative) 03/30/22 04:45 Urine Bilirubin Neg (Negative) 03/30/22 04:45 Urine Urobilinogen Neg mg/dL (Negative) 03/30/22 04:45 Ur Leukocyte Esterase Trace (Negative) H 03/30/22 04:45 Urine RBC 5-10 /hpf (0-2) H 03/30/22 04:45 Urine WBC 5-10 /hpf (0-5) H 03/30/22 04:45 Ur Squamous Epith Cells 5-10 /hpf (0-5) H 03/30/22 04:45 Amorphous Sediment Not Reportable 03/30/22 04:45 Urine Bacteria None /hpf (NONE) 03/30/22 04:45 Urine Mucus 3+ /hpf 03/30/22 04:45 Discharge Plan Discharge Patient Disposition: Home Clinical Impression: Hypertension associated with diabetes, Vertigo Condition: Stable Prescriptions: New meclizine 25 mg tablet 25 mg PO TID PRN (Reason: dizziness) Qty: 30 0RF No Action celecoxib 200 mg capsule 200 mg PO BID PRN (Reason: left hip & leg pain) Qty: 180 1RF amlodipine 2.5 mg tablet 2.5 mg PO DAILY Qty: 30 5RF glyburide 5 mg tablet 5 mg PO DAILY Qty: 30 5RF metformin 1,000 mg tablet 1,000 mg PO BID Qty: 60 5RF atorvastatin 40 mg tablet 40 mg PO DAILY Qty: 90 1RF lisinopril 20 mg tablet 20 mg PO DAILY Qty: 90 3RF Discharge Orders: Discharge ED (Routine); Ordered 03/30/22 Ordered By: Chucho Yun Referrals: Fredi Cardenas MD [Primary Care Provider] - Patient Instructions: Chest Pain (ED), Vertigo (ED) Activity Restrictions/Additional Instructions: Medication as directed. Return for return of chest pain, worsening dizziness despite treatment, any other concerning symptoms. Follow-up with your doctor this week. Further outpatient testing may be needed. Coding Level of Care Code ED It Programmer for Ramana Fwd Exam Comprehensive
[2022-03-30 05:05] LABS: Bilirubin Urine Neg (Negative); Blood Urine 2+ (Negative); Glucose Urine UA Norm (Normal); Ketones Urine 1+ (Negative); Leukocyte Esterase Urine Trace (Negative); Nitrate Urine Negative (Negative); Protein Urine Trace (Negative); Specific Gravity, Urine 1.025 (1.005-1.030); Urine Appearance Hazy (CLEAR); Urine Color Yellow (Yellow); Urobilinogen Urine Neg (Negative); pH Urine 5 (5-7)
[2022-03-30 05:06] LABS: Add Urine Microscopic? YES
[2022-03-30 05:08] LABS: Add Urine Culture? No; Mucus Urine 3+ /hpf
--- NOTE | 2022-03-30 05:57 | PC.NURSE ---
Pt states less dizzy than before. Walked to bathroom without assistance. No complaints. MD notified
--- NOTE | 2022-03-30 06:01 | ECG_ITS ---
[facility] Test Date: 2022-03-30 Pat Name: Mejia Adame Department: Room: Gender: Female Braille Typist: : 1960 Requested By: Chucho Rosas Order Number: [id number] [place] MD: Baljit Yip M.D. Measurements Intervals [place] Rate: 77 P: 28 OK: 200 QRS: -19 QRSD: 93 T: 9 QT: 392 QTc: 444 Interpretive Statements SINUS RHYTHM LOW QRS VOLTAGE IN PRECORDIAL LEADS [QRS DEFLECTION < 1.0 mV IN CHEST LEADS] Compared to ECG 06/01/2019 21:11:07 No significant changes Electronically Signed On 03-30-2022 19:57:13 QUICKBOOKS BOOKKEEPER by Baljit Yip M.D. [id number]
[2022-03-30 06:47] LABS: Troponin 5 2HR 6.25 ng/L (0-10)
[2022-03-30 07:07] VITALS: BP 130/76; PULSE 75; RESP 18; O2SAT 96
[2022-03-30 07:12] LABS: Troponin 5 2HR Delta -0.75 ABS# (0-10)
== END 2022-03-30 07:08 | disposition home or self-care (01) ==
PROVIDERS: Emergency Provider Emergency Medicine; PCP Family Medicine Adult Medicine
DX: E11.9 Type 2 diabetes mellitus without complications (principal); I10 Essential (primary) hypertension; R42 Dizziness and giddiness
CPT/HCPCS: 70450; 71045; 80053; 81001; 83735; 84484; 85025; 93005; 96361; 96374; 99285; J2250; J7030

== ENCOUNTER → 2022-07-31 11:49 | Outpatient (BNVA) | payer BC, MEDICAID, SELFPAY | PROVIDERS: PCP Family Medicine Adult Medicine; Visit Provider Family Medicine Adult Medicine | DX: E11.59 Type 2 diabetes mellitus with other circulatory complications (principal); E78.5 Hyperlipidemia, unspecified; I15.2 Hypertension secondary to endocrine disorders | CPT/HCPCS: 80053; 83036; 84443; 85025 ==

== ENCOUNTER → 2023-04-29 09:30 | Outpatient (BNVA) | payer MEDICARE, SELFPAY | PROVIDERS: PCP Family Medicine Adult Medicine; Visit Provider Family Medicine Adult Medicine | DX: E66.9 Obesity, unspecified; E11.59 Type 2 diabetes mellitus with other circulatory complications; I15.2 Hypertension secondary to endocrine disorders; E78.5 Hyperlipidemia, unspecified; K42.9 Umbilical hernia without obstruction or gangrene; M25.552 Pain in left hip; G89.29 Other chronic pain; J30.9 Allergic rhinitis, unspecified; E11.22 Type 2 diabetes mellitus with diabetic chronic kidney disease; I12.9 Hypertensive chronic kidney disease with stage 1 through stage 4 chronic kidney disease, or unspecified chronic kidney disease; Z87.19 Personal history of other diseases of the digestive system; R42 Dizziness and giddiness; E11.43 Type 2 diabetes mellitus with diabetic autonomic (poly)neuropathy; K31.84 Gastroparesis; K21.9 Gastro-esophageal reflux disease without esophagitis; K42.0 Umbilical hernia with obstruction, without gangrene; Z98.890 Other specified postprocedural states; Z90.49 Acquired absence of other specified parts of digestive tract; K21.00 Gastro-esophageal reflux disease with esophagitis, without bleeding; Z90.710 Acquired absence of both cervix and uterus; Z90.721 Acquired absence of ovaries, unilateral; E11.638 Type 2 diabetes mellitus with other oral complications | CPT/HCPCS: 80048; 80061; 83036 ==

== ENCOUNTER → 2023-09-16 10:20 | Outpatient (BNVA) | payer MEDICARE, SELFPAY | PROVIDERS: PCP Family Medicine Adult Medicine; Visit Provider Nurse Practitioner Family | DX: R06.02 Shortness of breath (principal) | CPT/HCPCS: 71046; 93005 ==

== ENCOUNTER 2023-11-07 21:21 | Emergency (ER) | payer MEDICARE, SELFPAY ==
--- NOTE | 2023-11-07 21:29 | ECG_ITS ---
[facility] Test Date: 2023-11-07 Pat Name: Kirsten Adame Department: Room: Gender: Female Delivery Analyst: : 1960 Requested By: Chucho Rosas Order Number: [id number] [place] MD: Lila Del Rosario M.D. Measurements Intervals [place] Rate: 82 P: 7 [place]: 190 QRS: -17 QRSD: 86 T: 7 QT: 362 QTc: 423 Interpretive Statements SINUS RHYTHM MODERATE VOLTAGE CRITERIA FOR LVH, CONSIDER NORMAL VARIANT [MEETS CRITERIA IN POSSIBLE ANTERIOR MYOCARDIAL INFARCTION , PROBABLY OLD [30 ms Q WAVE IN V3/V4, OR R < 0.2 mV IN V4] Compared to ECG 03/30/2022 06:06:12 Myocardial infarct finding now present Electronically Signed On 11-08-2023 13:26:59 CDT by Lila Del Rosario M.D. [id number] f
[2023-11-07 21:30] VITALS: BP 163/82; PULSE 86; RESP 16; TEMP 36.4; O2SAT 99; BMI 32.8
[2023-11-07 22:41] VITALS: BP 145/82; PULSE 78; RESP 22; O2SAT 97
--- NOTE | 2023-11-07 22:41 | XRR_ITS ---
PROCEDURE INFORMATION: Exam: XR Chest Exam date and time: 11/08/2023 12:27 AM Age: 63 years old Clinical indication: Pain; Chest pressure; Additional info: Chest pain TECHNIQUE: Imaging protocol: Radiologic exam of the chest. Views: 1 view. COMPARISON: CR XR chest 2V* [id number] 09/16/2023 11:03 AM FINDINGS: Limitations: Patient rotation. Lungs: Unremarkable. No consolidation. Pleural spaces: Unremarkable. No pleural effusion. No pneumothorax. Heart/Mediastinum: Unremarkable. No cardiomegaly. Bones/joints: Unremarkable. Other findings: Punctate hyperdensity overlying the right posterior 11th rib is nonspecific and may be artifactual. XR/XR chest 1V portable [id number] IMPRESSION: No acute findings.
[2023-11-07 23:00] VITALS: BP 148/92; PULSE 86; RESP 23; O2SAT 97
[2023-11-07 23:05] LABS: Basophils # 0.1 10^3/uL (0.0-0.1); Basophils % 0.6 %; Eosinophils # 0.1 10^3/uL (0.0-0.8); Eosinophils % 1.1 %; Hematocrit 41.8 % (36-47); Lymphocytes # 2.8 10^3/uL (0.8-4.8); Lymphocytes % 27.4 %; Mean Corpuscular HGB Conc 32.8 g/dL (30-55); Mean Corpuscular Hemoglobin 27.4 pg (27-33); Mean Corpuscular Volume 83.6 fl (85-98); Mean Platelet Volume 10.3 fL (7.4-10.4); Monocytes # 0.6 10^3/uL (0.2-0.9); Monocytes % 5.8 %; Neutrophils # 6.61 10^3/uL (1.8-7.7); Neutrophils % 64.6 %; Nucleated Red Blood Cells % 0 %; Platelet Count 464 10^3/cmm (157-399); Red Cell Distribution Width 12.8 % (12.1-15.1); White Blood Count 10.22 10^3/uL (3.29-11.43)
[2023-11-07 23:19] LABS: INR 0.89 (0.8-1.2)
[2023-11-07 23:20] LABS: Partial Thromboplastin Time 25.6 SECONDS (23.9-36.7)
[2023-11-07 23:26] LABS: Troponin(5th) Baseline < 6 ng/L (0-10)
[2023-11-07 23:30] VITALS: BP 135/89; PULSE 81; RESP 22; O2SAT 96
[2023-11-07 23:34] LABS: Alanine Aminotransferase 22 U/L (0-33); Albumin Level 4.3 g/dL (3.5-5.2); Alkaline Phosphatase 66 U/L (35-105); Blood Urea Nitrogen 15 mg/dL (8-23); Calcium 9.4 mg/dL (8.5-10.5); Carbon Dioxide 23 mmol/L (22-29); Chloride 102 mmol/L (98-107); Creatinine Clr Calc Pharmacy 66.6829; Globulin 3.1 g/dL (1.3-4.6); Glomerular Filtration Rate 100.3 mL/min (90-130); Glucose 117 mg/dL (65-115); NT Pro B Type Natriuretic Pept < 36 pg/mL (0-125); Osmolality Calculated 288 mOsm/kg (285-295); Sodium 138 mmol/L (136-145); Total Bilirubin 0.2 mg/dL (0.15-1.2); Total Protein 7.4 g/dL (6.6-8.7)
[2023-11-07 23:43] LABS: Anion Gap 17.7 (5-19); Aspartate Amino Transferase 18 U/L (0-32); Potassium 4.7 mmol/L (3.5-5.1)
[2023-11-08] VITALS: BP 137/92; PULSE 79; RESP 23; O2SAT 96
[2023-11-08] MEDS: lidocaine 2% viscous 15 ML, aluminum-mag hydrox-simethicon 30 ML, sucralfate oral liq 1 GM PO (00:15)
[2023-11-08] MEDS: ketorolac 30 mg/mL INJ IVP (00:28)
[2023-11-08 00:30] VITALS: BP 156/99; PULSE 80; RESP 22; O2SAT 94
[2023-11-08 01:00] VITALS: BP 149/91; PULSE 77; RESP 23; O2SAT 93
[2023-11-08 01:30] VITALS: BP 134/96; PULSE 80; RESP 14; O2SAT 96
[2023-11-08 01:33] LABS: Troponin 5 2HR Delta 0.00001 ABS# (0-10)
[2023-11-08 01:45] VITALS: BP 145/94; PULSE 78; RESP 23; O2SAT 94
[2023-11-08 02:00] VITALS: BP 142/92; PULSE 77; RESP 21; O2SAT 93
--- NOTE | 2023-11-08 03:52 | ED_ITS ---
HPI - Chest Pain 2 General: Chief Complaint: Chest Pain Stated Complaint: CP,SOB Time Seen by Provider: 11/07/23 23:10 History of Present Illness: 63-year-old female with no definite prio r history of coronary disease. No stents in her heart. She presents with chest and epigastric discomfort radiating into her back the patient's daughter is with her, and believes that it may be due to esophageal reflux or heartburn. She does describe it as a burning type sensation. She is mildly short of breath, but no increased pain with deep breathing. No swelling of the legs. PFSH ED 2 PFSH: Medical History Umbilical hernia Sensorineural hearing loss Gastroparesis due to DM GERD (gastroesophageal reflux disease) Stress incontinence in female Allergic rhinitis due to allergen Xanthelasma of right eyelid Hypertension associated with diabetes Chronic left hip pain Obesity (BMI 30.0-34.9) Dyslipidemia Diabetes mellitus Surgical History History of umbilical hernia repair S/P laparoscopic cholecystectomy S/P hysterectomy with oophorectomy Social History Smoking and tobacco/nicotine status: never used tobacco/nicotine Alcohol intake: never Substance/Drug Use: never Household members: spouse Physical Exam 2 Const: COMMON NORMALS: no acute distress GENERAL APPEARANCE: cooperative; not ill appearing and not frail appearing HENMT: COMMON NORMALS: normocephalic, atraumatic and Normal external nose present HEAD & SCALP: normocephalic and atraumatic FACE & SINUS: normal facial exam and face symmetric NOSE: Normal external nose present Eye: COMMON NORMALS: Equal, round and reactive pupils present and EOMs intact bilaterally PUPIL: Yes Equal, round and reactive pupils present Neck/C-Spine: GENERAL: Yes trachea midline Chest: CHEST: Yes Symmetrical chest wall rise Resp: COMMON NORMALS: normal respiratory effort, No retractions, No use of accessory muscles and clear to auscultation bilaterally AUSCULTATION: clear to auscultation bilaterally Cardio: COMMON NORMALS: regular rate and regular rhythm RATE: regular rate RHYTHM: regular rhythm GI: COMMON NORMALS: Normal to inspection, nondistended, normoactive bowel sounds present and Soft to palpation PALPATION: Yes Soft to palpation and Yes Tenderness to palpation present (GI) (Epigastric) Extremity: COMMON NORMALS: no pedal edema Neuro: MAGUE COMA SCALE: document GCS findings [place] coma scale eye opening: Spontaneous [place] coma scale verbal response: Orientated [place] coma scale motor response: Obey commands [place] coma scale total score: 15 S ENSORY EXAM: Yes extremities (intact) Psych: COMMON NORMALS: speech normal SPEECH: Yes normal speech Skin: COMMON NORMALS: no rashes or lesions noted GENERAL SKIN EXAM: no rashes or lesions noted Course 2 Vital Signs: Vital signs: Vital Signs Temperature 97.6 F 11/07/23 21:30 Pulse Rate 86 11/07/23 21:30 Respiratory Rate 16 11/07/23 21:30 Blood Pressure 163/82 11/07/23 21:30 Pulse Oximetry 99 11/07/23 21:30 Oxygen Delivery Me thod Room Air 11/07/23 21:30 MDM - Chest Pain Medical Decision Making Chest discomfort is improved after GI cocktail here. CBC is not remarkable. BMP is not remarkable. Chest x-ray is not remarkable. Troponin baseline is nondetectable. BNP is nondetectable. EKG reveals no acute ST wave changes. 2- hour troponin did not change. With improvement in her systems, she will be allowed home with treatment of GERD. Close outpatient follow-up to return for worsening. Lab Data 11/07/23 22:58 11/07/23 22:58 Radiology Impressions Chest X-Ray 11/07/23 22:41 IMPRESSION: No acute findings. Laboratory Results WBC 10.22 10^3/uL (3.29-11.43) 11/07/23 22:58 RBC 5.00 10^6/uL (3.85-5.65) 11/07/23 22:58 Hgb 13.70 g/dL (11.27-16.99) 11/07/23 22:58 Hct 41.8 % (36-47) 11/07/23 22:58 MCV 83.6 fl (85-98) L 11/07/23 22:58 MCH 27.4 pg (27-33) 11/07/23 22:58 MCHC 32.8 g/dL (30-55) 11/07/23 22:58 RDW 12.8 % (12.1-15.1) 11/07/23 22:58 Plt Count 464 10^3/cmm (157-399) H 11/07/23 22:58 MPV 10.3 fL (7.4-10.4) 11/07/23 22:58 Neut % (Auto) 64.6 % 11/07/23 22:58 Lymph % (Auto) 27.4 % 11/07/23 22:58 [place] % (Auto) 5.8 % 11/07/23 22:58 Eos % (Auto) 1.1 % 11/07/23 22:58 Baso % (Auto) 0.6 % 11/07/23 22:58 Neut # (Auto) 6.61 10^3/uL (1.8-7.7) 11/07/23 22:58 Lymph # (Auto) 2.8 10^3/uL (0.8-4.8) 11/07/23 22:58 [place] # (Auto) 0.6 10^3/uL (0.2-0.9) 11/07/23 22:58 Eos # (Auto) 0.1 10^3/uL (0.0-0.8) 11/07/23 22:58 Baso # (Auto) 0.1 10^3/uL (0.0-0.1) 11/07/23 22:58 Nucleated RBC % (auto) 0 % 11/07/23 22:58 Nucleated RBCs # 0.0 /100WBC 11/07/23 22:58 PT 12.30 SECONDS (12.1-14.9) 11/07/23 22:58 INR 0.89 (0.8-1.2) 11/07/23 22:58 APTT 25.6 SECONDS (23.9-36.7) 11/07/23 22:58 Sodium 138 mmol/L (136-145) 11/07/23 22:58 Potassium 4.7 mmol/L (3.5-5.1) 11/07/23 22:58 Chloride 102 mmol/L (98-107) 11/07/23 22:58 Carbon Dioxide 23 mmol/L (22-29) 11/07/23 22:58 Anion Gap 17.7 (5-19) 11/07/23 22:58 BUN 15 mg/dL (8-23) 11/07/23 22:58 Creatinine 0.6 mg/dL (0.5-0.9) 11/07/23 22:58 GFR Calculation 100.3 mL/min (90-130) 11/07/23 22:58 Glucose 117 mg/dL (65-115) H 11/07/23 22:58 Calculated Osmolality 288 mOsm/kg (285-295) 11/07/23 22:58 Calcium 9.4 mg/dL (8.5-10.5) 11/07/23 22:58 Total Bilirubin 0.2 mg/dL (0.15-1.2) 11/07/23 22:58 AST 18 U/L (0-32) 11/07/23 22:58 ALT 22 U/L (0-33) 11/07/23 22:58 Alkaline Phosphatase 66 U/L (35-105) 11/07/23 22:58 Troponin T Baseline < 6 ng/L (0-10) 11/07/23 22:58 Troponin T 120 Minute 6.00 ng/L (0-10) 11/08/23 01:04 Delta Troponin T 0.14188 ABS# (0-10) 11/08/23 01:04 NT-Pro-B Natriuret Pep < 36 pg/mL (0-125) 11/07/23 22:58 Total Protein 7.4 g/dL (6.6-8.7) 11/07/23 22:58 Albumin 4.3 g/dL (3.5-5.2) 11/07/23 22:58 Globulin 3.1 g/dL (1.3-4.6) 11/07/23 22:58 All radiology interpretation(s) finalized by discharge Discharge Plan Discharge Patient Disposition: Home Clinical Impression: Chest pain GERD (gastroesophageal reflux disease) Qualifiers: Esophagitis presence: with esophagitis Esophagitis bleeding: without hemorrhage Qualified Code(s): K21.00 - Gastro-esophageal reflux disease with esophagitis, without bleeding Condition: Stable Prescriptions: Changed pantoprazole 40 mg tablet,delayed release (DR/EC) 40 mg PO .q hs Qty: 90 3RF No Action amlodipine 2.5 mg tablet 2.5 mg PO DAILY Qty: 90 3RF celecoxib 200 mg capsule 200 mg PO BID PRN (Reason: left hip & leg pain) Qty: 180 3RF diphenhydramine HCl 25 mg capsule 25 mg PO .qhs PRN (Reason: allergy/cough symptoms) Qty: 90 3RF glyburide 5 mg tablet 5 mg PO DAILY Qty: 90 3RF lisinopril 20 mg tablet 20 mg PO DAILY Qty: 90 3RF loratadine 10 mg tablet 10 mg PO .q am Qty: 90 3RF metformin 1,000 mg tablet 1,000 mg PO BID Qty: 180 3RF metoclopramide HCl [Reglan] 10 mg tablet 10 mg PO Q6H PRN (Reason: nausea and vomiting) Qty: 360 3RF Rx Instructions: Take 1 tablet before meals and at bedtime atorvastatin 80 mg tablet 80 mg PO DAILY Qty: 90 3RF Discharge Orders: Discharge ED (Routine); Ordered 11/08/23 Ordered By: Chucho Yun Referrals: Fredi Cardenas MD [Primary Care Provider] - 1-3 days Patient Instructions: Chest Pain (ED), GERD (Gastroesophageal Reflux Disease) (ED), Esophageal Spasm (ED), Opioid Safety, Pain Management Coding Level of Care Code ED [employer] Appliances Demonstrator for Ramana Peralta
== END 2023-11-08 02:09 | disposition home or self-care (01) ==
PROVIDERS: Emergency Provider Emergency Medicine; PCP Family Medicine Adult Medicine
DX: R07.9 Chest pain, unspecified (principal); K21.00 Gastro-esophageal reflux disease with esophagitis, without bleeding; Z79.84 Long term (current) use of oral hypoglycemic drugs; I10 Essential (primary) hypertension; E11.9 Type 2 diabetes mellitus without complications; E78.5 Hyperlipidemia, unspecified
CPT/HCPCS: 36415; 71045; 80053; 83880; 84484; 85025; 85610; 85730; 93005; 96374; 99285; J1885

== ENCOUNTER → 2024-07-25 09:39 | Outpatient (BNVA) | payer MEDICARE, SELFPAY | PROVIDERS: PCP Family Medicine; Visit Provider Family Medicine | DX: E11.638 Type 2 diabetes mellitus with other oral complications (principal); E78.5 Hyperlipidemia, unspecified; E11.59 Type 2 diabetes mellitus with other circulatory complications; I15.2 Hypertension secondary to endocrine disorders; Z78.9 Other specified health status; K21.00 Gastro-esophageal reflux disease with esophagitis, without bleeding | CPT/HCPCS: 80061; 82043; 82607; 83036; 84443 ==